=== PATIENT | female | born 1980 | race Caucasian/White ===

== ENCOUNTER → 2020-12-03 14:52 | Outpatient (BNVA) | payer OTHER, SELFPAY | PROVIDERS: PCP Internal Medicine; Visit Provider Physician Assistant Medical | DX: S63.501A Unspecified sprain of right wrist, initial encounter (principal); X50.1XXA Overexertion from prolonged static or awkward postures, initial encounter | CPT/HCPCS: 73110; 73130; 99203 ==

== ENCOUNTER → 2020-12-08 15:37 | Outpatient (BNVA) | payer OTHER, SELFPAY | PROVIDERS: PCP Internal Medicine; Visit Provider Internal Medicine | DX: S63.502A Unspecified sprain of left wrist, initial encounter (principal); X58.XXXA Exposure to other specified factors, initial encounter | CPT/HCPCS: 99213 ==

== ENCOUNTER → 2020-12-15 14:47 | Outpatient (BNVA) | payer OTHER, SELFPAY | PROVIDERS: PCP Internal Medicine; Visit Provider Internal Medicine | DX: S63.502A Unspecified sprain of left wrist, initial encounter (principal); X58.XXXA Exposure to other specified factors, initial encounter | CPT/HCPCS: 99213 ==

== ENCOUNTER → 2020-12-24 09:17 | Outpatient (BNVA) | payer OTHER, SELFPAY | PROVIDERS: PCP Internal Medicine; Visit Provider Internal Medicine | DX: S63.502A Unspecified sprain of left wrist, initial encounter (principal); X58.XXXA Exposure to other specified factors, initial encounter | CPT/HCPCS: 99213 ==

== ENCOUNTER → 2021-01-07 07:45 | Outpatient (BNVA) | payer OTHER, SELFPAY | PROVIDERS: PCP Internal Medicine; Visit Provider Internal Medicine | DX: S63.502D Unspecified sprain of left wrist, subsequent encounter (principal); X58.XXXD Exposure to other specified factors, subsequent encounter; R20.0 Anesthesia of skin | CPT/HCPCS: 99213 ==

== ENCOUNTER → 2021-01-11 08:06 | Outpatient (BNVA) | payer OTHER, SELFPAY | PROVIDERS: PCP Internal Medicine; Visit Provider Orthopaedic Surgery | DX: M25.532 Pain in left wrist (principal); R20.0 Anesthesia of skin; R20.2 Paresthesia of skin | CPT/HCPCS: 99202 ==

== ENCOUNTER 2021-01-18 08:48 | Outpatient (REF) | payer OTHER, SELFPAY ==
--- NOTE | ~2021-01-18 | MR_ITS ---
EXAMINATION: MRI WRIST WITHOUT CONTRAST, LEFT CLINICAL INFORMATION: Left wrist pain COMPARISON: Radiographs 12/03/2020 TECHNIQUE: MRI without contrast is performed on the left wrist FINDINGS: The scapholunate and lunotriquetral ligaments appear intact. The triangular fibrocartilage complex appears intact. There is a small distal radioulnar joint effusion. Ulnar variance is neutral. There is a degenerative cyst of the distal scaphoid. Bone marrow signal is otherwise normal. The carpal tunnel, flexor and extensor tendons are unremarkable. MR/MR wrist LT wo con IMPRESSION: There is a small effusion of the distal radial ulnar joint. Otherwise unremarkable. Intrinsic ligaments and TFCC appear intact.
== END 2021-01-18 08:49 | disposition home or self-care (01) ==
LOC: HO.MRI 08:48
PROVIDERS: Visit Provider Orthopaedic Surgery
DX: M25.532 Pain in left wrist (principal)
CPT/HCPCS: 73221

== ENCOUNTER → 2021-01-27 15:18 | Outpatient (BNVA) | payer OTHER, SELFPAY | PROVIDERS: PCP Internal Medicine; Visit Provider Orthopaedic Surgery | DX: M25.532 Pain in left wrist (principal); R20.0 Anesthesia of skin; R20.2 Paresthesia of skin | CPT/HCPCS: 99212 ==

== ENCOUNTER 2021-02-04 08:30 | Outpatient (RCR) | payer OTHER, SELFPAY ==
--- NOTE | 2020-12-10 10:35 | MHC.OT.IE ---
[address] [phone] F: [phone] Occupational Therapy Inpatient Evaluation History Diagnosis: LEFT WRIST SPRAIN History of Current Condition: Medical History Reviewed: Precautions: Precautions Comments: PAIN Social History History Obtained By: Lives With: Type of Dwelling: Number of Floors: Number of Stairs to Enter: Living Situation Comment: Adaptive Equipment Owned: Adaptive Equipment Comment: Prior Level of Function: Pain Assessment Pain Score: 2 Pain Scale Used: Numeric (0 - 10) Pain Location and Description: 2-5 LEFT WRIST CIRCUMFERENTIAL Comment: Current Condition Behavior and Communication Alertness: Orientation: Safety Awareness: Cognition Comments: Vision: GLASSES Hearing: Coordination Finger to Nose: Finger Opposition: Rapid Alternating Movement: Comments: Sensory Assessment Light Touch: Localization: Proprioception: Temperature: Stereognosis: Comments: Musculoskeletal Upper Extremity ROM: Upper Extremity Strength: Balance Static Sitting: Dynamic Sitting: Static Standing: Dynamic Standing: Comments: Self-Care Feeding: Grooming: Upper Body Bathing: Lower Body Bathing: Upper Body Dressing: Lower Body Dressing: Toileting: IADL/Home Care: Comments: Bed Mobility Assistive Device: Rolling: Supine to Sit: Sit to Supine: Comments: Transfers Assistive Device: Transfer Type: Transfer Destination: Transfer Ability: Comments: Functional Mobility Assistive Device: Ambulation Distance: Ambulation Ability: Comments: Plan of Care Rehab Potential: Assessment: Problem List: Treatment Plan: Goals: Goals Set with Patient: Frequency and Duration: The patient will be seen Equipment Needed: Discharge Plan: Discharge Plan Comment: Discharge Today: Electronically Signed By: BRANDI ALDANA OT CHT CLT Reviewed/agree with student documentation: N/A Therapist:
--- NOTE | 2021-03-15 09:53 | MHC.OT.DC ---
[address] [phone] F: [phone] Occupational Therapy Discharge Note Provider: Dr Jimenez Diagnosis: LEFT WRIST SPRAIN Date of Evaluation: 12/10/20 Date of Discharge: 03/15/21 Treatments to Date: 14 Cancellations to Date: 0 No Shows to Date: 0 Discharge Status: Achieved Goals Independent with HEP Patient Elected to Stop Discharge Summary: Nahomy continued to have mild ulnar wrist edema noted and low pain with limited use of left hand. Pt is indep with HEP, painfree with ther ex and functional activities and goals met. Electronically Signed By: ABRAHAM Ingram/[place] Reviewed/agree with student documentation: N/A Therapist: ARYAN Chowdary Please Sign and return to therapist, thank you for your referral.
== END 2021-03-15 10:48 | disposition other institution (70) ==
LOC: HO.OT 08:30
PROVIDERS: PCP Internal Medicine; Visit Provider Internal Medicine
DX: M77.8 Other enthesopathies, not elsewhere classified (principal)
CPT/HCPCS: 97033; 97035; 97110; 97140; 97165; 97530

== ENCOUNTER 2021-03-04 08:00 | Outpatient (REF) | payer OTHER, SELFPAY ==
--- NOTE | 2021-03-04 08:00 | EMG_ITS ---
Left median and ulnar motor and sensory studies were performed. Left median and lateral antecubital, brachial, and radial sensory studies were performed. Paraspinal muscles were tested with a needle. IMPRESSION: [id number] left median neuropathy across carpal tunnel. Otherwise, study was unremarkable. MD SIMIN Ponce/ALYSSA / [id number]
== END 2021-03-04 08:01 | disposition home or self-care (01) ==
LOC: HO.NEURO 08:00
PROVIDERS: Visit Provider Orthopaedic Surgery
DX: R20.0 Anesthesia of skin (principal); R20.2 Paresthesia of skin
CPT/HCPCS: 95886; 95910

== ENCOUNTER → 2021-03-15 15:19 | Outpatient (BNVA) | payer OTHER, SELFPAY | PROVIDERS: Visit Provider Orthopaedic Surgery | DX: M25.532 Pain in left wrist (principal); G56.02 Carpal tunnel syndrome, left upper limb | CPT/HCPCS: 99212 ==

== ENCOUNTER → 2021-04-14 09:46 | Outpatient (BNVA) | payer OTHER, SELFPAY | PROVIDERS: PCP Internal Medicine; Visit Provider Orthopaedic Surgery | DX: M25.532 Pain in left wrist (principal); G56.02 Carpal tunnel syndrome, left upper limb | CPT/HCPCS: 99212; 99214 ==

== ENCOUNTER → 2021-05-24 15:31 | Outpatient (BNVA) | payer OTHER, SELFPAY | PROVIDERS: Visit Provider Orthopaedic Surgery | DX: G56.02 Carpal tunnel syndrome, left upper limb (principal); M25.532 Pain in left wrist | CPT/HCPCS: 99212 ==